=== PATIENT | male | born 1960 | race Caucasian/White ===

== ENCOUNTER 2016-11-03 18:53 | Emergency (ER) | payer OTHER ==
[~2016-11-03 18:53] MED LIST: ALLERGY10 M2 PO; AMOXICILLIN500 M1 PO; BACTRIM DS TABL1 TA2 PO; KEFLEX500 M2 PO; MOBIC PO; MOTRIN600 M1 PO; NORCO 7.5-3251 EACH PO; OFLOXACIN5 M1 AU; OMEPRAZOLE40 M1 PO; PRINIVIL10 MG PO; PRINIVIL40 MG PO; PROPRANOLOL HC120 MG PO; VERAPAMIL ER240 MG PO
[2016-11-03 19:49] LABS: BASOPHIL# 0.1 X10e3 (0-0.3); BASOPHIL% 0.9 % (0-2.5); DIFF IND NO; EOSINOPHIL# 0.3 X10e3 (0-0.7); EOSINOPHIL% 2.6 % (0.0-7.0); HEMATOCRIT 48.1 % (38.0-50.0); HEMOGLOBIN 16.4 gm/dL (13.0-16.0); LYMPHOCYTE% 24.6 % (17.0-45.0); MEAN CELL VOLUME 86.9 FL (83-96); MEAN CORPUSCULAR HEMOGLOBIN 29.6 PG (28-34); MEAN CORPUSCULAR HGB CONC 34.1 g/dL (30-36); MEAN PLATELET VOLUME 8.6 FL (6.5-11.5); MONOCYTE# 0.9 X10e3 (0-1.0); MONOCYTE% 7.4 % (3.0-12.0); NEUTROPHIL# 7.9 X10e3 (1.5-7.1); NEUTROPHIL% 64.5 % (40-75); PLATELET COUNT 229 X10e3 (140-420); RED BLOOD COUNT 5.53 X10e (3.90-5.60); RED CELL DISTRIBUTION WIDTH 13.6 % (11.0-15.5); WHITE BLOOD COUNT 12.3 X10e3 (4.0-10.5)
[2016-11-03 20:01] LABS: URINE SOURCE CLEAN CATCH
[2016-11-03 20:03] LABS: URINE APPEARANCE HAZY; URINE BILIRUBIN NEG (NEG); URINE BLOOD 3+ (NEG); URINE COLOR YELLOW; URINE GLUCOSE NEG (NORM); URINE KETONE NEG (NEG); URINE LEUKOCYTE ESTERASE NEG (NEG); URINE NITRATE NEG (NEG); URINE PROTEIN NEG (NEG); URINE SPECIFIC GRAVITY 1.025 (1.003-1.035); URINE UROBILINOGEN 0.2 MG/DL (NORM)
[2016-11-03 20:07] LABS: GLOM FILT RATE Estimated 84.4 mL/min (>60); POTASSIUM 4.2 mmol/L (3.5-5.1)
[2016-11-03 20:10] LABS: CULTURE INDICATED? NO; MICRO INDICATED? YES; URINE BACTERIA NEG (NEG); URINE RBC INNUM /[HPF] (0-2); URINE SQUAMOUS EPITHELIAL CELL OCCAS /[HPF]
== END 2016-11-03 20:38 | disposition home or self-care (01) ==
LOC: SED 18:53
PROVIDERS: Emergency Medicine
DX: N41.0 Acute prostatitis (principal); R33.9 Retention of urine, unspecified; I10 Essential (primary) hypertension
CPT/HCPCS: 36415; 51702; 80048; 81003; 85025; 87086; 99284